=== PATIENT | male | born 1985 ===

== ENCOUNTER 2017-03-19 19:55 | Emergency (ER) | payer MEDICAID ==
[2017-03-19 20:00] VITALS: BP 147/98; PULSE 67; RESP 18; TEMP 98; O2SAT 98
--- NOTE | 2017-03-19 20:12 | ED PDOC ---
HPI: Male Pain Chief Complaint (Nursing): Male Genitourinary History Per: Patient History/Exam Limitations: no limitations Onset/Duration Of Symptoms: Days (4) Current Symptoms Are (Timing): Still Present Severity: Moderate Quality Of Discomfort: "Pain" Associated Symptoms: denies: Fever, Chills, Nausea, Vomiting, Diarrhea, Loss Of Appetite, Back Pain, Chest Pain, Constipation, Urinary Symptoms Alleviating Factors: None Additional History Per: Patient Additional Complaint(s): 31 y/o male complaining of testicular pain for the last four days, as well as lower abdominal pain for the last day. Pain is worse with lifting. He denies any fever, swelling, urine changes, past abdominal surgery, or other complaint. Past Medical History Vital Signs: Last Vital Signs Temp 98 F 03/19/17 19:57 Pulse 67 03/19/17 19:57 Resp 18 03/19/17 19:57 BP 147/98 H 03/19/17 19:57 Pulse Ox 98 03/19/17 19:57 - Medical History PMH: No Chronic Diseases - Surgical History Surgical History: No Surg Hx - Family History Family History: States: Unknown Family Hx - Social History Current smoker - smoking cessation education provided: No Ex-Smoker (has not smoked in the last 12 months): No Alcohol: None Drugs: Denies - Home Medications Home Medications: Ambulatory Orders Medication Instructions Recorded Naproxen 1 tab PO Q12 PRN #14 tab 03/19/17 - Allergies Allergies/Adverse Reactions: Allergies Allergy/AdvReac Type Severity Reaction Status Date / Time No Known Allergies Allergy Verified 03/19/17 19:57 Review of Systems Constitutional: Negative for: Fever Gastrointestinal: Positive for: Abdominal Pain. Negative for: Nausea, Vomiting , Diarrhea, Constipation Genitourinary Male: Positive for: Scrotal Pain. Negative for: Dysuria, Hematuria Physical Exam - Physical Exam Appears: Positive for: Well, Non-toxic, No Acute Distress Skin: Positive for: Normal Color, Warm, Dry Respiratory: Negative for: Respiratory Distress Gastrointestinal/Abdominal: Positive for: Normal Exam, Bowel Sounds, Soft. Negative for: Tenderness (patient describes pain lateral to umbilicus, however none is appreciated on exam), Guarding, Rebound, Hernia Male Genital Exam: Positive for: normal genitalia, no hernia. Negative for: epididymal tenderness, hernia mass, inguinal tenderness, scrotum tenderness (R) , scrotum tenderness (L), testicular tenderness (R), testicular tenderness (L) Rectal: Positive for: Deferred Extremity: Positive for: Normal ROM - ECG O2 Sat by Pulse Oximetry: 98 (RA) Pulse Ox Interpretation: Normal Medical Decision Making Medical Decision Making: Impression: Testicular Pain Plan: - UA - US Testes [facility] Final Radiology Report Call: [phone] assistance Online chat: [email or web address] Patient Name: EMMA SANTO (Age): 1985 31 Gender: M Date of Exam: 03/19/2017 Referring Physician: Rebecca Garcia PA-C # of Images: [phone] Ordered As: US TESTES DUPLEX COMPLETE CONFIDENTIALITY STATEMENT This report is intended only for use by the referring physician, and only in accordance with law. If you received this in error, call [phone]. Page 1 of 1 EXAM: US Scrotum CLINICAL HISTORY: 31 years old, male; Pain; Scrotum pain; Additional info: Right testicular pain TECHNIQUE: Real-time ultrasound of the scrotum with color Doppler and image documentation. COMPARISON: No relevant prior studies available. FINDINGS: Right testicle: No mass. No torsion. Left testicle: No mass. No torsion. Epididymides: Unremarkable as visualized. Scrotum: Small RIGHT hydrocele. Small LEFT hydrocele. IMPRESSION: 1. No sonographic evidence of testicular torsion. 2. Incidental/non-acute findings are described above. Thank you for allowing us to participate in the care of your patient. Dictated and Authenticated by: Timothy Herring MD 03/19/2017 9:36 PM Eastern Time ([place]) Results discussed with patient. Recommended Naprosyn for pain control. Follow up and return precautions given. Avoid heavy lifting. All questions answered. Patient discharged in stable condition. Scribe Attestation Documented by Amalia Morton acting as a scribe for Rebecca Garcia PA-C. Provider Attestation All medical record entries made by the Scribe were at my direction and personally dictated by me. I have reviewed the chart and agree that the record accurately reflects my personal performance of the history, physical exam, medical decision making, and the department course for this patient. I have also personally directed, reviewed, and agree with the discharge instructions and disposition. Disposition - Clinical Impression Clinical Impression: Testicular pain, Hydrocele Doctor Will See Patient In The: Office Counseled Patient/Family Regarding: Studies Performed, Diagnosis, Need For Followup - Disposition Referrals: Lilibeth Boyer MD [Medical Doctor] - Disposition: Routine/Home Disposition Time: 21:55 Condition: STABLE Prescriptions: Naproxen 1 tab PO Q12 PRN #14 tab PRN Reason: Pain, Moderate (4-7) Instructions: Hydrocele (ED) Forms: [employer] (Mongolian)
[2017-03-19 20:58] LABS: RBC URINE 2 /hpf (0-3); URINE BILIRUBIN NEGATIVE (NEGATIVE); URINE BLOOD NEGATIVE (NEGATIVE); URINE COLOR YELLOW (YELLOW); URINE GLUCOSE (UA) NEG (Normal); URINE KETONE NEGATIVE (NEGATIVE); URINE LEUKOCYTE ESTERASE NEG Leu/uL (Negative); URINE PROTEIN NEGATIVE (NEGATIVE); URINE UROBILINOGEN 0.2-1.0 mg/dL (0.2-1.0); WBC URINE < 1 /hpf (0-5)
--- NOTE | 2017-03-19 21:36 | US ---
EXAM: US Scrotum CLINICAL HISTORY: 31 years old, male; Pain; Scrotum pain; Additional info: Right testicular pain TECHNIQUE: Real-time ultrasound of the scrotum with color Doppler and image documentation. COMPARISON: No relevant prior studies available. FINDINGS: Right testicle: No mass. No torsion. Left testicle: No mass. No torsion. Epididymides: Unremarkable as visualized. Scrotum: Small RIGHT hydrocele. Small LEFT hydrocele. IMPRESSION: 1. No sonographic evidence of testicular torsion. 2. Incidental/non-acute findings are described above.
== END 2017-03-19 22:13 | disposition home or self-care (01) ==
LOC: H.ER 19:55
DX: N43.3 Hydrocele, unspecified (principal)